=== PATIENT | female | born 1935 | race Caucasian/White ===

== ENCOUNTER → 2017-10-17 | Outpatient (CLI) | payer OTHER ==
[~2017-10-17] MED LIST: APRESOLIN50 MG PO; APRESOLINE50 MG PO; ASPIR-TRIN325 M1 PO; Apresoline PO; BISAC-EVAC10 MG PR; BYSTOLIC10 MG PO; BYSTOLIC5 MG PO; CALTRATE 6001 TABLE1 PO; CALTRATE 6001 TABLET PO; CELEBREX200 MG PO; CRESTOR20 MG PO; CRESTOR5 MG PO; Calan SR,Covera HS,I PO; ENDOCET 5-3251 EACH PO; ERGOCALCIF50000 UNIT PO; FEOSOL325 MG PO; HYZAAR 100-21 TABLET PO; LORTAB 7.5/51 TABLET PO; Levothroid,Synthroid PO; NASONEX17 GM BOTH NARES; NASONEX17 GM NS; OMEGA 3-6-91200 MG PO; PARAFON FORTE500 MG PO; PREVACID30 MG PO; Prevacid PO; SENOKOT S,PE1 TABLET PO; SYNTHROID50 MCG PO; THERAGRAN1 TABLET PO; TYLENOL EXTRA500 MG PO; Tylenol Extra Streng PO; VERAPAMIL HCL240 MG PO; Vicodin,Lortab 5/500 PO
== END | disposition home or self-care (01) ==
DX: M16.11 Unilateral primary osteoarthritis, right hip (principal); R26.2 Difficulty in walking, not elsewhere classified; M25.551 Pain in right hip; M25.651 Stiffness of right hip, not elsewhere classified; M62.81 Muscle weakness (generalized); Z74.1 Need for assistance with personal care
CPT/HCPCS: 97161 GP; 97165 GO; 97530 GP; 97535 GO; G8978 GP; G8979 GP; G8980 GP; G8987 GO; G8988 GO; G8989 GO

== ENCOUNTER 2017-11-13 23:04 | Inpatient (IN) | payer OTHER ==
[~2017-11-13] VITALS: Ht 154.9 cm; Wt 81.4 kg
[~2017-11-13 23:04] MED LIST changes: +IRON325 M1 PO; +TOPROL XL50 MG PO
[2017-11-14 12:02] VITALS: BP 128/59
[2017-11-14 16:46] LABS: HEMATOCRIT 32.5 % (36.0-46.0); HEMOGLOBIN 10.7 G/DL (11.9-15.5); MCH 27.7 PG (29.0-34.0); MCHC 32.9 G/DL (30.0-36.0); MCV 84.2 FL (83-99); PLATELET COUNT 346 K/uL (156-360); RBC DIS.WIDTH-CV 15.8 % (11.8-14.6); RBC DIS.WIDTH-SD 47.9 % (39-53); RED BLOOD COUNT 3.86 M/uL (3.80-5.20); WHITE BLOOD COUNT 10.8 K/uL (4.1-10.2)
[2017-11-14 18:47] VITALS: BP 156/70
[2017-11-14 23:18] VITALS: BP 153/67
[2017-11-15 04:31] VITALS: BP 149/70
[2017-11-15 07:06] LABS: CHLORIDE 99 MEQ/L (99-109); CREATININE 0.7 MG/DL (0.6-1.3); GFR ESTIMATE (CALCULATED) > 59 mL/min/; GLUCOSE 113 mg/dL (70-99); POTASSIUM 3.9 MEQ/L (3.7-5.4); SODIUM 135 MEQ/L (136-147); UREA NITROGEN (BUN) 8 mg/dL (9-23)
[2017-11-15 07:48] VITALS: BP 130/56
[2017-11-15 16:02] VITALS: BP 138/65
[2017-11-15 16:38] LABS: HEMATOCRIT 31.8 % (36.0-46.0); HEMOGLOBIN 10.3 G/DL (11.9-15.5); MCV 83.2 FL (83-99)
[2017-11-15 19:30] VITALS: BP 128/63
[2017-11-15 23:20] VITALS: BP 129/58
[2017-11-16 03:40] VITALS: BP 117/57
[2017-11-16 07:35] VITALS: BP 111/54
[2017-11-16] MEDS ORDERED: HYDROCODON-ACE1 EAC7 PO (09:17)
[2017-11-16] MEDS ORDERED: LOVENOX40 MG/0.4 SC (09:17)
[2017-11-16 16:02] VITALS: BP 118/55
[2017-11-16 23:31] VITALS: BP 125/61
[2017-11-17 08:20] VITALS: BP 122/61
== END 2017-11-17 13:41 | DRG 470 ==
LOC: ENRESERV 23:04 → 2SOUTH 11-14 10:48 → 3EAST 11-14 11:09 → 2SOUTH 11-14 11:25 → ENRESERV 11-14 16:08 → 3EAST 11-14 18:13
PROVIDERS: Orthopaedic Surgery
PROC: 0SR90JA Replacement of Right Hip Joint with Synthetic Substitute, Uncemented, Open Approach (ICD-10-PCS; principal; 2017-11-14)
DX: M16.11 Unilateral primary osteoarthritis, right hip (principal); I11.9 Hypertensive heart disease without heart failure; I25.10 Atherosclerotic heart disease of native coronary artery without angina pectoris; E78.2 Mixed hyperlipidemia; K21.9 Gastro-esophageal reflux disease without esophagitis; E03.9 Hypothyroidism, unspecified; Z96.653 Presence of artificial knee joint, bilateral; Z98.1 Arthrodesis status; Z87.891 Personal history of nicotine dependence
CPT/HCPCS: 71045; 73501; 80048; 85014; 85018; 85027; J0690; J1170; J1650; J2405; J7050; S0020

== ENCOUNTER 2017-12-21 10:43 | Inpatient (IN) | payer OTHER ==
[~2017-12-21] VITALS: Ht 154.9 cm; Wt 80.2 kg
[~2017-12-21 10:43] MED LIST changes: +HYDROCODON-ACE1 EAC7 PO; +LOVENOX40 MG/0.4 SC
[2017-12-21 11:27] LABS: ALBUMIN 4.5 g/dL (3.2-4.8); CHLORIDE 97 mEq/L (99-109); POTASSIUM 3.7 mEq/L (3.7-5.4); SODIUM 135 mEq/L (136-147)
[2017-12-21 11:29] VITALS: BP 124/59
[2017-12-21 11:29] LABS: GLUCOSE 122 mg/dL (70-99)
[2017-12-21 11:30] LABS: TOTAL PROTEIN 7.1 g/dL (6.4-8.3)
[2017-12-21 11:31] LABS: TOTAL BILIRUBIN 0.7 mg/dL (0.0-1.0)
[2017-12-21 11:33] LABS: ALKALINE PHOSPHATASE 85 IU/L (3-129); CREATININE 0.8 mg/dL (0.6-1.3); GFR ESTIMATE (CALCULATED) > 59 mL/min/
[2017-12-21 11:34] LABS: UREA NITROGEN (BUN) 8 mg/dL (9-23)
[2017-12-21 11:35] LABS: AST (GOT) 14 IU/L (2-34)
[2017-12-21 11:36] LABS: ALT (GPT) 7 IU/L (3-49)
[2017-12-21 14:47] LABS: HEMATOCRIT 30.8 % (36.0-46.0); MCH 27.7 PG (29.0-34.0); MCHC 32.5 G/DL (30.0-36.0); MCV 85.3 FL (83-99); PLATELET COUNT 381 K/uL (156-360); RBC DIS.WIDTH-CV 16.4 % (11.8-14.6); RBC DIS.WIDTH-SD 51.4 % (39-53); RED BLOOD COUNT 3.61 M/uL (3.80-5.20); WHITE BLOOD COUNT 9.2 K/uL (4.1-10.2)
[2017-12-21 15:42] VITALS: BP 143/63
[2017-12-21 19:32] VITALS: BP 151/64
[2017-12-21 23:17] VITALS: BP 141/63
[2017-12-22 06:42] LABS: CHLORIDE 101 MEQ/L (99-109); CREATININE 0.6 MG/DL (0.6-1.3); GFR ESTIMATE (CALCULATED) > 59 mL/min/; GLUCOSE 106 mg/dL (70-99); POTASSIUM 3.7 MEQ/L (3.7-5.4); SODIUM 135 MEQ/L (136-147); UREA NITROGEN (BUN) 8 mg/dL (9-23)
[2017-12-22 08:39] VITALS: BP 124/59
[2017-12-22] MEDS ORDERED: DOCUSATE SODIU100 MG PO (08:41)
[2017-12-22] MEDS ORDERED: ECOTRIN325 MG PO (08:45)
[2017-12-22] MEDS ORDERED: CELECOXIB200 MG PO (08:46)
[2017-12-22] MEDS ORDERED: OXYCODONE HCL5 MG PO (08:46)
[2017-12-22] MEDS ORDERED: LOVENOX40 MG/0.4 SC (08:46)
[2017-12-22 14:20] LABS: HEMATOCRIT 24.8 % (36.0-46.0); HEMOGLOBIN 8.2 G/DL (11.9-15.5); MCV 84.4 FL (83-99)
[2017-12-22 16:07] VITALS: BP 114/55
[2017-12-22 23:10] VITALS: BP 121/58
[2017-12-23 07:03] LABS: HEMATOCRIT 25.5 % (36.0-46.0); HEMOGLOBIN 8.4 G/DL (11.9-15.5); MCHC 32.9 G/DL (30.0-36.0); PLATELET COUNT 366 K/uL (156-360); RBC DIS.WIDTH-CV 16.4 % (11.8-14.6); WHITE BLOOD COUNT 6.9 K/uL (4.1-10.2)
[2017-12-23 07:15] VITALS: BP 128/61
[2017-12-23 07:30] LABS: CHLORIDE 102 MEQ/L (99-109); CREATININE 0.6 MG/DL (0.6-1.3); GFR ESTIMATE (CALCULATED) > 59 mL/min/; GLUCOSE 92 mg/dL (70-99); POTASSIUM 3.5 MEQ/L (3.7-5.4); SODIUM 138 MEQ/L (136-147); UREA NITROGEN (BUN) 9 mg/dL (9-23)
== END 2017-12-23 16:14 | disposition home or self-care (01) | DRG 909 ==
LOC: SDC 10:43 → 3EAST 14:15 → 2SOUTH 14:15 → CANRESERV 14:32 → ENRESERV 14:32 → 3EAST 15:18
PROVIDERS: Orthopaedic Surgery
DX: M96.840 Postprocedural hematoma of a musculoskeletal structure following a musculoskeletal system procedure (principal); Y83.8 Other surgical procedures as the cause of abnormal reaction of the patient, or of later complication, without mention of misadventure at the time of the procedure; Z96.653 Presence of artificial knee joint, bilateral; K21.9 Gastro-esophageal reflux disease without esophagitis; I10 Essential (primary) hypertension; E78.5 Hyperlipidemia, unspecified; Z96.641 Presence of right artificial hip joint; Z88.8 Allergy status to other drugs, medicaments and biological substances; E03.9 Hypothyroidism, unspecified; E78.00 Pure hypercholesterolemia, unspecified
CPT/HCPCS: 73501; 76937; 80048; 80053; 80202; 85014; 85018; 85027; 86850; 86900; 86901; 87070; 87075; 87205; C1776; J0131; J0330; J0690; J1100; J1170; J1650; J2405; J2543; J2710; J3010; J3370; J7050; J7643